=== PATIENT | female | born 1950 | race Caucasian/White ===

== ENCOUNTER 2017-12-12 11:27 | Day surgery (SDC) | payer OTHER ==
[~2017-12-12] VITALS: Ht 165.1 cm; Wt 77.1 kg
[~2017-12-12 11:27] MED LIST: NORVASC5 MG PO
== END 2017-12-13 08:00 | disposition home or self-care (01) ==
LOC: O/R 11:27 → SURH 11:27 → CIR.AMB 11:27 → SURH 19:45 → CIR.AMB 12-13 08:00 → O/R 12-13 10:20
DX: D12.8 Benign neoplasm of rectum (principal)

== ENCOUNTER 2018-04-13 08:30 | Day surgery (SDC) | payer OTHER | END 2018-04-13 16:10 | disposition home or self-care (01) | LOC: AMB-ENDOS 08:30 | DX: D12.0 Benign neoplasm of cecum (principal); K57.30 Diverticulosis of large intestine without perforation or abscess without bleeding; K64.1 Second degree hemorrhoids ==